=== PATIENT | male | born 1940 | race Caucasian/White ===

== ENCOUNTER → 2021-09-15 00:38 | Outpatient (CLI) | payer MEDICARE, SELFPAY ==
[2021-09-16 18:23] LABS: SARS-CoV-2 RNA PCR Negative
== END ==
PROVIDERS: PCP Internal Medicine; Visit Provider Internal Medicine
DX: R68.89 Other general symptoms and signs (principal); Z20.822 Contact with and (suspected) exposure to COVID-19
CPT/HCPCS: C9803; U0003; U0005

== ENCOUNTER 2021-09-17 06:48 | Outpatient (CLI) | payer MEDICARE, SELFPAY ==
[2021-09-17 08:33] LABS: SARS-CoV-2 RNA PCR Negative (Negative)
== END 2021-09-17 06:49 | disposition home or self-care (01) ==
LOC: CHSLAB 06:51
PROVIDERS: PCP Internal Medicine; Visit Provider Internal Medicine
DX: Z78.9 Other specified health status (principal); Z20.822 Contact with and (suspected) exposure to COVID-19
CPT/HCPCS: C9803; U0003; U0005

== ENCOUNTER → 2022-02-09 10:02 | Outpatient (CLI) | payer MEDICARE, SELFPAY ==
--- NOTE | ~2022-02-09 | XR_ITS ---
EXAMINATION: XR knee RT min 4V EXAM DATE: 02/09/2022 10:23 INDICATION: M25.561 - Pain in right knee. TECHNIQUE: Right knee lateral, frontal AP, frontal PA tunnel, sunrise projections. There is no prior study for comparison. FINDINGS: No evidence osteochondral defect or joint body in the right knee joint. There are no acut e fractures or dislocations identified. There is no subcutaneous gas. There are arterial calcificat ions, arteriosclerosis. There are no radiopaque foreign bodies. Right patella has moderate right l ateral subluxation and mild primary osteoarthritis at the patellofemoral compartment. No sizable join t effusion. IMPRESSION: Right patellar lateral subluxation and mild patellofemoral osteoarthritis. Reviewed, dictated and finalized at location G. IMPRESSION: Right patellar lateral subluxation and mild patellofemoral osteoart hritis.
== END ==
PROVIDERS: PCP Family Medicine; Visit Provider Family Medicine
DX: M17.11 Unilateral primary osteoarthritis, right knee (principal)
CPT/HCPCS: 73564

== ENCOUNTER 2023-01-30 08:12 | Outpatient (CLI) | payer MEDICARE, SELFPAY ==
[2023-01-30 20:26] LABS: Alanine Aminotransferase 33 U/L (6-50); Albumin Level 4.6 g/dL (3.5-5.1); Alkaline Phosphatase 53 U/L (38-126); Anion Gap 5 mmol/L (8-16); Aspartate Amino Transferase 55 U/L (17-59); Bilirubin,Total 0.7 mg/dL (0.2-1.3); Blood Urea Nitrogen 21 mg/dL (9-20); Calcium 9.5 mg/dL (8.4-10.2); Carbon Dioxide 31 mmol/L (22-30); Chloride 101 mmol/L (98-107); Cholesterol 133 mg/dL (0-200); Estimated Glomerular Filt Rate > 60; Glucose 87 mg/dL (65-110); HDL Direct 36 mg/dL; Potassium 4.7 mmol/L (3.4-5.0); Sodium 137 mmol/L (137-145); Triglycerides 88 mg/dL (<150)
[2023-01-30 20:37] LABS: LDL Cholesterol Direct 64 mg/dL
[2023-01-30 22:16] LABS: Prostate Specific Antigen 0.4 ng/mL (< OR = 4.0)
== END 2023-01-30 08:13 | disposition home or self-care (01) ==
LOC: ANHGOSHLAB 08:14
PROVIDERS: PCP Family Medicine; Visit Provider Family Medicine
DX: Z12.5 Encounter for screening for malignant neoplasm of prostate (principal); E78.5 Hyperlipidemia, unspecified; I10 Essential (primary) hypertension
CPT/HCPCS: 36415; 80053; 80061; 84153; G0103

== ENCOUNTER → 2023-02-07 16:15 | Outpatient (CLI) | payer MEDICARE, SELFPAY ==
--- NOTE | ~2023-02-07 | XR_ITS ---
Lumbosacral Spine: AP, oblique, and lateral views Clinical History: Pain Findings: The normal lordotic curve is maintained. No fracture identified. Minimal grade 1 anterolist hesis of L4 over L5 noted. There is moderate degenerative disc narrowing throughout the lumbar spine. There is facet arthropathy, worst at L4-L5 and L5-S1. The sacroiliac joints are normally outlined. Impression: Moderate degenerative spondylosis, as above. Minimal grade 1 anterolisthesis of L4 over L5. Reviewed, dictated and finalized at location M. Impression: Moderate degenerative spondylosis, as above. Minimal grade 1 anterolisthesis of L4 over L5.
--- NOTE | ~2023-02-07 | XR_ITS ---
AP and oblique views of the SI joints CLINICAL HISTORY: Back pain FINDINGS: SI joints are unremarkable. No sclerosis or erosive change. No degenerative change. Soft ti ssues are unremarkable. Hip joints appear intact. IMPRESSION: Unremarkable exam. Reviewed, dictated and finalized at location M. IMPRESSION: Unremarkable exam.
== END ==
PROVIDERS: PCP Family Medicine; Visit Provider Family Medicine
DX: M47.896 Other spondylosis, lumbar region (principal)
CPT/HCPCS: 72110; 72202

== ENCOUNTER 2023-07-16 08:00 | Outpatient (CLI) | payer MEDICARE, SELFPAY ==
--- NOTE | 2023-07-16 11:00 | NEURO_ITS ---
Impression: # Complains of numbness of right thumb. # Right Carpal Tunnel Syndrome. # No ulnar neuropathy. # Normal needle/EMG. Nerve Conduction Studies Anti Sensory Summary Table Stim Site NR Peak (ms) P-T Amp (?V) Site1 Site2 Delta-P (ms) Dist (cm) Easton (m/s) Left Median Anti Sensory (2-3nd Digit) Wrist 3.9 24.0 Wrist 2-3nd Digit 3.9 14.0 36 Wrist 4.1 38.6 Wrist 2-3nd Digit 3.9 14.0 36 Right Median Anti Sensory (2-3nd Digit) Wrist 4.6 36.2 Wrist 2-3nd Digit 4.6 14.0 30 Wrist 4.8 9.1 Wrist 2-3nd Digit 4.6 14.0 30 Left Radial Anti Sensory (Base 1st Digit) Wrist 2.3 9.4 Wrist Base 1st Digit 2.3 0.0 Right Radial Anti Sensory (Base 1st Digit) Wrist 2.3 7.9 Wrist Base 1st Digit 2.3 0.0 Left Ulnar Anti Sensory (5th Digit) Wrist 2.8 44.1 Wrist 5th Digit 2.8 14.0 50 Right Ulnar Anti Sensory (5th Digit) Wrist 2.7 50.9 Wrist 5th Digit 2.7 14.0 52 Motor Summary Table Stim Site NR Onset (ms) O-P Amp (mV) Site1 Site2 Delta-0 (ms) Dist (cm) Easton (m/s) Left Median Motor (Abd Poll Brev) Wrist 3.9 3.7 Elbow Wrist 5.5 29.0 53 Elbow 9.4 3.0 Right Median Motor (Abd Poll Brev) Wrist 4.7 6.3 Elbow Wrist 6.2 31.0 50 Elbow 10.9 5.5 Left Ulnar Motor (Abd Dig Minimi) Wrist 2.8 7.6 A Elbow Wrist 5.7 30.0 53 A Elbow 8.5 5.7 Right Ulnar Motor (Abd Dig Minimi) Wrist 2.8 7.0 A Elbow Wrist 5.8 30.0 52 A Elbow 8.6 4.7 F Wave Studies NR F-Lat (ms) L-R F-Lat (ms) Left Median (Mrkrs) (Abd Poll Brev) 30.31 1.24 Right Median (Mrkrs) (Abd Poll Brev) 31.54 1.24 Left Ulnar (Mrkrs) (Abd Dig Min) 30.86 0.23 Right Ulnar (Mrkrs) (Abd Dig Min) 31.10 0.23 EMG Side Muscle Nerve Root Ins Act Fibs Amp Dur Recrt Comment Right 1stDorInt Ulnar C8-T1 Nml Nml Nml Nml Nml Right Ext Indicis Radial (Post Int) C7-8 Nml Nml Nml Nml Nml Right Ext Digitorum Radial (Post Int) C7-8 Nml Nml Nml Nml Nml Right BrachioRad Radial C5-6 Nml Nml Nml Nml Nml Right PronatorTeres Median C6-7 Nml Nml Nml Nml Nml Right Abd Poll Brev Median C8-T1 Nml Nml Nml Nml Nml Left 1stDorInt Ulnar C8-T1 Nml Nml Nml Nml Nml Left Ext Indicis Radial (Post Int) C7-8 Nml Nml Nml Nml Nml Left Ext Digitorum Radial (Post Int) C7-8 Nml Nml Nml Nml Nml Left BrachioRad Radial C5-6 Nml Nml Nml Nml Nml Left PronatorTeres Median C6-7 Nml Nml Nml Nml Nml Left Abd Poll Brev Median C8-T1 Nml Nml Nml Nml Nml MTDD
== END 2023-07-16 08:01 | disposition home or self-care (01) ==
PROVIDERS: PCP Family Medicine; Visit Provider Family Medicine
DX: R20.2 Paresthesia of skin (principal); G56.01 Carpal tunnel syndrome, right upper limb
CPT/HCPCS: 95886; 95911

== ENCOUNTER 2024-01-31 08:37 | Outpatient (CLI) | payer MEDICARE, SELFPAY ==
[2024-01-31 14:40] LABS: Alanine Aminotransferase 37 U/L (6-50); Albumin Level 4.5 g/dL (3.5-5.1); Alkaline Phosphatase 53 U/L (38-126); Anion Gap 7 mmol/L (8-16); Aspartate Amino Transferase 47 U/L (17-59); Bilirubin,Total 1.1 mg/dL (0.2-1.3); Blood Urea Nitrogen 23 mg/dL (9-20); Calcium 9.3 mg/dL (8.4-10.2); Carbon Dioxide 28 mmol/L (22-30); Chloride 105 mmol/L (98-107); Cholesterol 126 mg/dL (0-200); Estimated Glomerular Filt Rate > 60; Glucose 121 mg/dL (65-110); HDL Direct 32 mg/dL; Potassium 4.1 mmol/L (3.4-5.0); Sodium 140 mmol/L (137-145); Triglycerides 118 mg/dL (<150)
[2024-01-31 14:52] LABS: LDL Cholesterol Direct 74 mg/dL
[2024-01-31 15:08] LABS: Prostate Specific Antigen 0.5 ng/mL (< OR = 4.0)
== END 2024-01-31 08:38 | disposition home or self-care (01) ==
PROVIDERS: PCP Family Medicine; Visit Provider Family Medicine
DX: E78.5 Hyperlipidemia, unspecified (principal); Z13.228 Encounter for screening for other metabolic disorders; Z12.5 Encounter for screening for malignant neoplasm of prostate
CPT/HCPCS: 36415; 80053; 80061; 84153; G0103

== ENCOUNTER 2024-02-05 18:17 | Emergency (ER) | payer OTHER, MEDICARE, SELFPAY ==
--- NOTE | ~2024-02-05 | CT_ITS ---
EXAMINATION: CT cervical spine wo con DATE: 02/05/2024 19:47 INDICATION: Head injury TECHNIQUE: Computed tomography (CT) of the cervical spine was performed without intravenous contrast. The dose-length product (DLP) was 592.19 mGy-cm. Automated exposure control and iterative reconstruc tion technique were employed. COMPARISON: None FINDINGS: There are 2 mm of anterolisthesis of C2 on C3 and 2 mm of retrolisthesis of C5 on C6. There is no fracture. There is severe loss of intervertebral disc space height from C4-5 through C6-7. The re is moderate loss of intervertebral disc space height at C3-4. The odontoid process is intact. The vertebral body heights are maintained. There is multilevel severe facet and uncovertebral joint osteo arthritis. IMPRESSION: 1. Severe cervical spondylosis without acute findings. Reviewed, dictated and finalized at location F.
--- NOTE | ~2024-02-05 | CT_ITS ---
EXAMINATION: CT brain wo con INDICATION: Headache COMPARISON: None TECHNIQUE: Standard unenhanced head CT. The dose-length product (DLP) was 756.67 mGy-cm. The mA was a djusted according to patient size. Iterative reconstruction technique was employed. FINDINGS: No acute intraparenchymal hemorrhage. No evidence of mass lesion. No evidence of acute infa rction. There is mild periventricular and subcortical hypodensity probably related to small vessel is chemic disease. There is mild prominence of the sulci and ventricles related to cerebral atrophy. Int racranial calcified cerebral atherosclerosis is noted. No extra-axial collections. No mass effect or midline shift. Changes in the globes are likely from ocular lens surgery. There is mild mucosal thick ening of the paranasal sinuses. IMPRESSION: 1. No acute intracranial abnormality. 2. Age related findings. Reviewed, dictated and finalized at location F.
--- NOTE | ~2024-02-05 | XR_ITS ---
EXAMINATION: XR hand RT min 3V INDICATION: Right hand pain TECHNIQUE: Three views of the right hand are obtained. COMPARISON: 08/15/2009 FINDINGS: Bone alignment is normal. There is no fracture. Calcified atherosclerosis is noted. There i s mild osteoarthritis at the triscaphe and first carpometacarpal joints. No definite radiopaque forei gn body is identified. IMPRESSION: 1. No acute osseous abnormality a radiopaque foreign body identified. Reviewed, dictated and finalized at location F.
--- NOTE | ~2024-02-05 | XR_ITS ---
EXAMINATION: XR hip RT min 2V DATE: 02/05/2024 19:04 INDICATION: Right hip pain TECHNIQUE: Two views of right hip were obtained. COMPARISON: 02/07/2023 FINDINGS: Bone alignment is normal. There is no fracture. There is an unchanged, subtle lucent lesion in the proximal femoral shaft without aggressive features, consistent with a benign finding. Calcifi ed atherosclerosis is noted. IMPRESSION: 1. No acute osseous abnormality. Reviewed, dictated and finalized at location F.
[2024-02-05 18:19] VITALS: BP 145/65; PULSE 87; RESP 16; TEMP 36.4; O2SAT 96
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
[2024-02-05] MEDS: ACETAMINOPHEN 500 MG TABLET 1000 MG PO (19:49)
--- NOTE | 2024-02-05 21:10 | PC.NURSE ---
cleaned pts wounds. 4 wounds on R hand and 2 wounds to R forehead. All wounds were cleaned with saline irrigation, dried, applied Bacitracin ointment and covered with band aids.
[2024-02-05 21:12] VITALS: BP 141/78; PULSE 89; RESP 20; TEMP 36.7; O2SAT 96
== END 2024-02-05 21:13 | disposition home or self-care (01) ==
PROVIDERS: Emergency Provider Physician Assistant; PCP Family Medicine
DX: S39.92XA Unspecified injury of lower back, initial encounter (principal); S00.81XA Abrasion of other part of head, initial encounter; S60.511A Abrasion of right hand, initial encounter; I10 Essential (primary) hypertension; K21.9 Gastro-esophageal reflux disease without esophagitis; Z85.828 Personal history of other malignant neoplasm of skin; M47.812 Spondylosis without myelopathy or radiculopathy, cervical region; V49.40XA Driver injured in collision with unspecified motor vehicles in traffic accident, initial encounter
CPT/HCPCS: 70450; 72125; 73130; 73502; 99284; A9270

== ENCOUNTER 2024-02-10 09:21 | Outpatient (CLI) | payer MEDICARE, SELFPAY ==
[2024-02-10 22:28] LABS: Hemoglobin A1C 6.3 % (<5.7)
== END 2024-02-10 09:22 | disposition home or self-care (01) ==
PROVIDERS: PCP Family Medicine; Visit Provider Family Medicine
DX: R73.01 Impaired fasting glucose (principal)
CPT/HCPCS: 36415; 83036

== ENCOUNTER 2025-01-26 10:54 | Outpatient (CLI) | payer MEDICARE, SELFPAY ==
--- NOTE | 2025-01-26 11:10 | ECG_ITS ---
Test Date: 2025-01-26 11:22:04 Measurements Intervals [place] Rate: 57 P: 44 WV: 188 QRS: 52 QRSD: 86 T: 30 QT: 412 QTc: 403 Interpretive Statements SINUS BRADYCARDIA No previous ECG available for comparison Electronically Signed On 01-26-2025 15:02:46 CDT by Maira Rodriguez M.D.
--- OUTSIDE RECORDS SUMMARY | 2025-01-26 12:36 | XMS_ITS | Encounter Summary ---
Author Organization [facility] Address [address] [place] [address] Care Team Providers Care Straight Cutter Machine Name Role Phone Kade Nieves MD Primary Care Provider [phone] Encounter Details Date Type Department Care Team (Late st Contact Info) Description 07/16/2023 Lab Requisition [facility] - DermPath Lab [address] [facility] [place] [address] Louisa Castro DO [address] [facility] [address] DEPT [place] [address] Social History Tobacco Use Types Packs/Day Years Used Date Smoking Tobacco: Never Assessed Sex and Gender Information Value Date Recorded Sex Assigned at Not on file Gender Identity Not on file Sexual Orientation Not on file documented as of this encounter Plan of Treatment Not on file documented as of this encounter Procedures Procedure Name Priority Date/Time Associated Diagnosis Comments DERMATOPATHOLOGY Routine 07/16/2023 10:3 8 AM CDT documented in this encounter Results * DERMATOPATHOLOGY (07/16/2023 10:38 AM CDT) Case Report Dermatopathology Report Case: [id number] Authorizing Provider: Louisa Castro DO Collected: 07/16/2023 10:38 AM Ordering Location: [facility] Received: 07/17/2023 07:48 AM Pathologist: Richi Araiza MD Specimen: Skin, left lateral back 3 4:18 PM CDT DERMATOPATHOLOGY LABORATORY Final Diagnosis Specimen A. SKIN, left lateral back: HYPERPLASTIC (HYPERTROPHIC) ACTINIC KERATOSIS (L57.0) BENIGN VERRUCOUS KERATOSIS (L82.1) (see microscopic description) 3 4:18 PM CDT DERMATOPATHOLOGY LABORATORY Clinical History ISK R/O NMSC; NONHEALING IRRITATED 3 4:18 PM T DERMATOPATHOLOGY LABORATORY Gross Description Specimen A: Received is one formalin filled container labeled with the patient's name and designated left lateral back. The specimen consists of a shave biopsy measuring 12x8x1 and 4x2x1 mm. Jar 0. 3 4:18 PM [facility] DERMATOPATHOLOGY LABORATORY Microscopic Description Specimen A. SKIN, left lateral back: There is hyperkeratosis alternating with parakeratosis. There is epidermal hyperplasia with disorderly maturation of keratinocytes with nuclear pleomorphism confined to the lower half of the epidermis. Sections also show adjacent hyperkeratosis, papillomatosis, hypergranulosis, and acanthosis. These histological findings can be seen in a verruca vulgaris or a seborrheic keratosis. 3 4:18 PM [facility] DERMATOPATHOLOGY LABORATORY Disclaimer An external and internal positive and negative controls are appropriate for the histochemical, immunohistochemical and immunofluorescence stain(s) in this case (if any), except where stated explicitly. The performance characteristics of the stain(s) cited in this report were developed and its performance characteristic determined by the Dermatopathology Laboratory at [facility], directed by Dr. Fortino Araiza. These tests need not be, and therefore are not, approved by the [place] Food and Drug Administration. The tests are used for clinical purposes. Billing Codes Specimen Charges Stain Charges 63593 1 3 4:18 PM CDT DERMATOPATHOLOGY LABORATORY Embedded Images 3 4:18 PM CDT DERMATOPATHOLOGY LABORATORY Pathology/Cytolo gy TISSUE SPECIMEN FROM SKIN / Unknown 07/16/2023 10:38 AM CDT 07/17/2023 7:48 AM CDT Louisa Castro DO LAB - PATHOLOGY/C YTOLOGY ORDERABLES DERMATOPATHOLOGY LABORATORY [facility] - Department of Dermatology [address], [address] [phone] documented in this encounter Visit Diagnoses Not on filedocumented in this encounter Care Teams Straight Cutter Machine Relationship Specialty Start Date End Date Kade Nieves MD PCP - General 12/19/18 documented as of this encounter
--- OUTSIDE RECORDS SUMMARY | 2025-01-26 12:36 | XMS_ITS | Referral Summary ---
Author Organization [facility] Address [address] [place] [address] Care Team Providers Care Jv Baseball Coach Name Role Phone Jose AZana harrison Primary Care Provider [phone] Encounters Date Type Department Care Team Description 12/21/2024 3:30 PM CHECK WRITER Office Visit [facility] Cardiology [address] [place] [address] Michael Basurto MD Coronary arteriosclerosis in [place] artery (Primary Dx) from Last 3 Months Allergies No known active allergies Medications aspirin 81 mg enteric coated tablet daily Active amLODIPine (NORVASC) 10 mg tablet Take 1 tablet (10 mg total) by mouth daily 3 9 Active azelastine 0.15 % (205.5 mcg) spray,non-aeros ol Active finasteride (PROSCAR) 5 mg tablet Take 1 tablet (5 mg total) by mouth daily 3 9 Active metoprolol (LOPRESSOR) 25 mg tablet Take 1 tablet (25 mg total) by mouth 2 (two) times a day 3 9 Active pravastatin (PRAVACHOL) 40 mg tablet TAKE 1 TABLET BY MOUTH ONCE DAILY 3 9 Active ramipril (ALTACE) 10 mg capsule Take 2 capsules (20 mg total) by mouth daily 3 9 Active tamsulosin (FLOMAX) 0.4 mg extended release capsule Take 1 capsule (0.4 mg total) by mouth daily 3 9 Active multivitamin capsule Take 1 capsule by mouth daily Active methylPREDNISol one (MEDROL DOSEPACK) 4 mg Dosepack Use as directed by package instructions 21 tablet 3 Active Active Problems Problem Noted Date Diagnosed Date Essential hypertension 02/25/2019 Dyslipidemia 02/25/2019 Vocal cord atrophy 03/19/2017 Dysphonia 03/19/2017 Laryngeal spasm 03/19/2017 Dyspnea on exertion 09/05/2016 Muscle soreness 06/13/2015 Palpitations 12/13/2014 Coronary arteriosclerosis in [place] artery 09/30 Hemospermia 03/17/2010 Immunizations Immunization Administration Dates Next Due Hep A, Adult 08/13/2008,02/10/2008 Hep B Vaccine 08/13/2008,03/24/2008,02/10/2008 Influenza, Quad, Adjuvantate d, Intramuscular 07/19/2020 Influenza, Quadrivalent, Spl it, Preservative Free, Intramuscular 07/24/2013 Influenza, Trivalent, High D ose, Split, Preservative Free, Intramuscular 07/27/2019,07/23/2018,07/22/2018,08/17,08/28/2016,2015 Influenza, Trivalent, IM (MDV) 07/21/2014 Moderna SARS-CoV-2 Monovalen t Vaccination (12+ YRS) 02/06/2021,01/05/2021 Pneumococcal Conjugate PCV 13 02/06/2015 Social History Tobacco Use Types Packs/Day Years Used Date Smoking Tobacco: Never Smokeless Tobacco: Never Tobacco Cessation:Counseling Given: Not Answered AUDIT-C Answer Date Recorded Q1: How often do you have a drink containing alcohol? Never 08/27/2023 Q2: How many drinks containi ng alcohol do you have on a typical day when you are drinking? Patient does not drink Q3: How often do you have si x or more drinks on one occasion? Never 08/27/2023 Sex and Gender Information Value Date Recorded Sex Assigned at Not on file Legal Sex Male 2:59 AM CHECK WRITER Gender Identity Not on file Sexual Orientation Not on file Occupation Industry Job Start Date Job End Date Retired Not on file Not on file Not on file Last Filed Vital Signs Vital Sign Reading Time Taken Comments Blood Pressure 122/58 12/21/2024 2:46 PM CHECK WRITER Pulse 68 12/21/2024 2:46 PM CHECK WRITER Temperature 36.3 C (97.3 F) 09/16/2020 2:40 PM CDT Respiratory Rate 20 09/16/2020 2:55 PM CDT Oxygen Saturation 96% 12/21/2024 2:46 PM CHECK WRITER Inhaled Oxygen Concentration - - Weight 84.3 kg (185 lb 14.4 oz) 12/21/2024 2:46 PM CHECK WRITER Height 172.7 cm (5' 8 ) 12/21/2024 2:46 PM CHECK WRITER Body Mass Index 28.27 12/21/2024 2:46 PM CHECK WRITER Plan of Treatment Not on file Insurance [facility] Address: [id number] [place] [address] [facility] Address: [address] [address] [place] [address] [employer] Advance Directives For more information, please contact: [phone] * Full Code (Latest Code Status on File) Date Activated Date Inactivated Comments 09/16/2020 12:36 PM 09/16/2020 7:43 PM Care Teams Jv Baseball Coach Relationship Specialty Start Date End Date Zana Garcia DO PCP - General Family Medicine 06/26/22
--- OUTSIDE RECORDS SUMMARY | 2025-01-26 12:36 | XMS_ITS | Clinical Summary ---
Author Organization [facility] Address [address] [place] [address] Care Team Providers Care Log Carrier Operator Name Role Phone Jose Zana DARDEN Primary Care Provider [phone] Allergies No known active allergies Medications aspirin [...] soreness 06/13/2015 Palpitations 12/13/2014 Coronary arteriosclerosis in [place] artery 09/30 Hemospermia 03/17/2010 Encounters Date Type Department Care Team Description 12/21/2024 3:30 PM CLIP LOADING MACHINE ADJUSTER Office Visit [facility] Cardiology [address] [place] [address] Michael Basurto MD Coronary arteriosclerosis in [place] artery (Primary Dx) from Last 3 Months Immunizations Immunization Administration Dates Next Due Hep A, Adult 08/13/2008,02/10/2008 Hep B Vaccine 08/13/2008,03/24/2008,02/10/2008 Influenza, Quad, Adjuvantate d, Intramuscular 07/19/2020 Influenza, Quadrivalent, Spl it, Preservative Free, Intramuscular 07/24/2013 Influenza, Trivalent, High D ose, Split, Preservative Free, Intramuscular 07/27/2019,07/23/2018,07/22/2018,08/17,08/28/2016,2015 Influenza, Trivalent, IM (MDV) 07/21/2014 Moderna SARS-CoV-2 Monovalen t Vaccination (12+ YRS) 02/06/2021,01/05/2021 Pneumococcal Conjugate PCV 13 02/06/2015 Surgical History Surgery Date Site/Laterality Comments TONSILLECTOMY 11/18/1943 - 11/17/1944 CORONARY ANGIOPLASTY 11/18/1997 - 11/17/1998 CATARACT EXTRACTION EXTRACAP SULAR W/ INTRAOCULAR LENS IMPLANTATION Bilateral CATARACT EXTRACTION 1990 & 2004 Medical History Medical History Date Comments HTN (hypertension) Dyslipidemia CAD (coronary artery disease) Hx of adenomatous colonic polyps GERD (gastroesophageal reflux disease) BPH (benign prostatic hyperplasia) Benign prostatic hyperplasia 1968 Cataract 1993 Family History Medical History Relation Name Comments Diabetes Brother Biju Freitas Heart disease Father Paulie Maloney. Early Paternal Grandfather Paulie AguilarOliver Relation Name Status Comments Brother Biju Stoddard. Father Paulie Maloney. Mother Paternal Grandfather Paulie J. Social History Tobacco Use Types Packs/Day Years [...] on file Legal Sex Male 2:59 AM CLIP LOADING MACHINE ADJUSTER Gender Identity Not on file Sexual Orientation Not on file Occupation Industry Job Start Date Job End Date Retired Not on file Not on file Not on file Obstetrics History Last Filed Vital Signs Vital Sign Reading Time Taken Comments Blood Pressure 122/58 12/21/2024 2:46 PM CLIP LOADING MACHINE ADJUSTER Pulse 68 12/21/2024 2:46 PM CLIP LOADING MACHINE ADJUSTER Temperature 36.3 C (97.3 F) 09/16/2020 2:40 PM CDT Respiratory Rate 20 09/16/2020 2:55 PM CDT Oxygen Saturation 96% 12/21/2024 2:46 PM CLIP LOADING MACHINE ADJUSTER Inhaled Oxygen Concentration - - Weight 84.3 kg (185 lb 14.4 oz) 12/21/2024 2:46 PM CLIP LOADING MACHINE ADJUSTER Height 172.7 cm (5' 8 ) 12/21/2024 2:46 PM CLIP LOADING MACHINE ADJUSTER Body Mass Index 28.27 12/21/2024 2:46 PM CLIP LOADING MACHINE ADJUSTER Plan of Treatment Health Maintenance Due Date Last Done Comments Depression Screening 1938 Fall Risk Assessment 1938 DTaP/Tdap/Td Vaccine (1 - Tdap) 1949 Zoster Vaccine (1 of 2) 1988 Well Visit 65+ 2003 Pneumococcal vaccine 65+ (2 of 2 - PPSV23) 02/07/2016 02/06/2015 Covid-19 Vaccine (2023-2 5 season) 2024 10/20/2021, 02/06/2021, 01/05/2021 Influenza Vaccine (#1) 2024 0, 07/27/2019, 07/23/2018, Additional history exists Hepatitis B Screening Completed 08/13/2008 , 03/24/2008, 02/10/2008 Insurance [employer] [place] [id number] [employer] [place] [id number] Advance Directives For more information, please contact: [phone] * Full Code (Latest Code Status on File) Date Activated Date Inactivated Comments 09/16/2020 12:36 PM 09/16/2020 7:43 PM Care Teams Log Carrier Operator Relationship Specialty Start Date End Date Zana Garcia DO PCP - General Family Medicine 06/26/22
--- OUTSIDE RECORDS SUMMARY | 2025-01-26 12:36 | XMS_ITS | Encounter Summary ---
Author Organization [facility] Address [address] [facility] [place] [address] Care Team Providers Care Child Care Name Role Phone Kade Nieves MD Primary Care Provider [phone] Encounter Details Date Type Department Care Team (Late st Contact Info) Description 12/22/2018 Lab Requisition [facility] Care DermPath Lab [address] [facility], [facility] [place] [phone] Ermelinda Ashton MD [address] [facility] 3 [place] [address] Social History Tobacco Use Types Packs/Day Years Used Date Smoking Tobacco: Never Assessed Sex and Gender Information Value Date Recorded Sex Assigned at Not on file Gender Identity Not on file Sexual Orientation Not on file documented as of this encounter Plan of Treatment Not on file documented as of this encounter Procedures Procedure Name Priority Date/Time Associated Diagnosis Comments DERMATOPATHOLOGY Routine 12/19/2018 12:0 0 AM BURN TABLE OPERATOR documented in this encounter Results * DERMATOPATHOLOGY (12/19/2018 12:00 AM BURN TABLE OPERATOR) Case Report Dermatopathology Report Case: [id number] Authorizing Provider: Ermelinda Ashton MD Collected: 12/19/2018 12:00 AM Pathologist: Janey Morgan MD Received: 12/22/2018 09:54 AM Specimen: Skin, left nasal tip 9 1:16 PM BURN TABLE OPERATOR DERMATOPATHOLOGY LABORATORY Final Diagnosis Specimen A. SKIN, left nasal tip: ACTINIC KERATOSIS (L57.0) (see microscopic description) 9 1:16 PM BURN TABLE OPERATOR DERMATOPATHOLOGY LABORATORY Clinical History BCC. Non-healing. 9 1:16 PM BURN TABLE OPERATOR DERMATOPATHOLOGY LABORATORY Gross Description Specimen A: Received is one formalin filled container labeled with the patient's name and designated left nasal tip. The specimen consists of a shave biopsy measuring [id number]. Jar 0. 1:16 PM [facility] DERMATOPATHOLOGY LABORATORY Microscopic Description Specimen A. SKIN, left nasal tip: There is focal parakeratosis. The lower half of the epidermis shows disorderly maturation of keratinocytes with nuclear pleomorphism. Additional deeper sections were obtained and reviewed. There is minimal dermis present for evaluation. 1:16 PM [facility] DERMATOPATHOLOGY LABORATORY Disclaimer An external and internal positive and negative controls are appropriate for the histochemical, immunohistochemical and immunofluorescence stain(s) in this case (if any), except where stated explicitly. The performance characteristics of the stain(s) cited in this report were developed and its performance characteristic determined by the Dermatopathology Laboratory at [facility], directed by Dr. Fortino Araiza. These tests need not be, and therefore are not, approved by the [place] Food and Drug Administration. The tests are used for clinical purposes. Billing Codes Specimen Charges Stain Charges 70843 1 1:16 PM [facility] DERMATOPATHOLOGY LABORATORY Embedded Images 1:16 PM [facility] DERMATOPATHOLOGY LABORATORY Pathology/Cytolog y TISSUE SPECIMEN FROM SKIN / Unknown 12/19/2018 12/22/2018 9:54 AM BURN TABLE OPERATOR Ermelinda Ashton MD LAB - PATHOLOGY/CYT OLOGY ORDERABLES DERMATOPATHOLOGY LABORATORY [facility] - Department of Dermatology [address] [place] [address], 5th Floor Lab [address] [phone] documented in this encounter Visit Diagnoses Not on filedocumented in this encounter Care Teams Child Care Relationship Specialty Start Date End Date Kade Nieves MD PCP - General 12/19/18 documented as of this encounter
--- OUTSIDE RECORDS SUMMARY | 2025-01-26 12:37 | XMS_ITS | Clinical Summary ---
Author Organization [facility] Address [address] [place] [address] Care Team Providers Care High School Football Coach Name Role Phone Kade Nieves MD Primary Care Provider [phone] Source Comments [facility],non-owned Affiliates and Associated Physician Practices is amultiple site organization consisting of ambulatory clinics and hospital sitesin [place], [place], [place] and [place]. This disclosure is being madepursuant to the Care Everywhere program and may not contain all information available regarding this patient. Last updated 18.[facility] Social History Tobacco Use Types Packs/Day Years Used Date Smoking Tobacco: Never Assessed Sex and Gender Information Value Date Recorded Sex Assigned at Not on file Gender Identity Not on file Sexual Orientation Not on file Plan of Treatment Health Maintenance Due Date Last Done Comments DTAP/TDAP/TD VACCINES (1 - Tdap) 1959 PNEUMOCOCCAL VACCINE 50+ (1 of 1 - PCV) 1988 ZOSTER VACCINE (1 of 2) 1988 Respiratory Syncytial Virus (RSV) Vaccine Pt: or over 60 yrs (1 - 1-dose 75+ series) 2013 COVID-19 VACCINE ( - 2023-2 5 season) 2024 INFLUENZA VACCINE (#1) 2024 DEPRESSION SCREENING 11/18/2024 MEDICARE AWV CALENDAR YEAR 2024 HEPATITIS B VACCINE Aged Out No longe r eligible based on patient's age to complete this topic HIB VACCINE Aged Out No longer eligi ble based on patient's age to complete this topic HPV VACCINE Aged Out No longer eligi ble based on patient's age to complete this topic MENINGOCOCCAL (Group B) VACCINE Aged Out No longer eligible based on patient's age to complete this topic MENINGOCOCCAL VACCINE Aged Out No lisa beverly eligible based on patient's age to complete this topic Care Teams High School Football Coach Relationship Specialty Start Date End Date Kade Nieves MD PCP - General 12/19/18
--- OUTSIDE RECORDS SUMMARY | 2025-01-26 12:37 | XMS_ITS | Patient Health Summary ---
Author Organization [facility] Address [address] [facility] [place] [address] Care Team Providers Care Face Cleaner Name Role Phone Kade Nieves MD Primary Care Provider [phone] Note [address] [facility],non-owned Affiliates and Associated Physician Practices is amultiple site organization consisting of ambulatory clinics and hospital sitesin [place], [place], [place] and [place]. This disclosure is being madepursuant to the Care Everywhere program and may not contain all information available regarding this patient. Last updated 18.[facility] Social History Tobacco Use Types Packs/Day Years Used Date Smoking Tobacco: Never Assessed Sex and Gender Information Value Date Recorded Sex Assigned at Not on file Gender Identity Not on file Sexual Orientation Not on file Procedures * DERMATOPATHOLOGY(Performed 07/16/2023) * DERMATOPATHOLOGY(Performed 12/19/2018) * DERMATOPATHOLOGY(Performed 06/04/2017) * DERMATOPATHOLOGY(Performed 02/20/2016) Results * DERMATOPATHOLOGY (07/16/2023 10:38 AM CDT) Only the most recent of4 resultswithin the time period is included. Case Report Dermatopathology Report Case: [id number] Authorizing Provider: Louisa Castro DO Collected: 07/16/2023 10:38 AM Ordering Location: [facility] DermPath Lab Received: 07/17/2023 07:48 AM Pathologist: Richi Araiza MD Specimen: Skin, left lateral back 3 4:18 PM CDT DERMATOPATHOLOGY LABORATORY Final Diagnosis Specimen A. SKIN, left lateral back: HYPERPLASTIC (HYPERTROPHIC) ACTINIC KERATOSIS (L57.0) BENIGN VERRUCOUS KERATOSIS (L82.1) (see microscopic description) 3 4:18 PM CDT DERMATOPATHOLOGY LABORATORY Clinical History ISK R/O NMSC; NONHEALING IRRITATED 3 4:18 PM CDT DERMATOPATHOLOGY LABORATORY Gross Description Specimen A: Received is one formalin filled container labeled with the patient's name and designated left lateral back. The specimen consists of a shave biopsy measuring 12x8x1 and 4x2x1 mm. Jar 0. 3 4:18 PM T DERMATOPATHOLOGY LABORATORY Microscopic Description Specimen A. SKIN, left lateral back: There is hyperkeratosis alternating with parakeratosis. There is epidermal hyperplasia with disorderly maturation of keratinocytes with nuclear pleomorphism confined to the lower half of the epidermis. Sections also show adjacent hyperkeratosis, papillomatosis, hypergranulosis, and acanthosis. These histological findings can be seen in a verruca vulgaris or a seborrheic keratosis. 3 4:18 PM T DERMATOPATHOLOGY LABORATORY Disclaimer An external and internal positive and negative controls are appropriate for the histochemical, immunohistochemical and immunofluorescence stain(s) in this case (if any), except where stated explicitly. The performance characteristics of the stain(s) cited in this report were developed and its performance characteristic determined by the Dermatopathology Laboratory at [facility], directed by Dr. Fortino Araiza. These tests need not be, and therefore are not, approved by the [place] Food and Drug Administration. The tests are used for clinical purposes. Billing Codes Specimen Charges Stain Charges 17745 1 3 4:18 PM CDT DERMATOPATHOLOGY LABORATORY Embedded Images 3 4:18 PM CDT DERMATOPATHOLOGY LABORATORY Pathology/Cytolo gy TISSUE SPECIMEN FROM SKIN / Unknown 07/16/2023 10:38 AM CDT 07/17/2023 7:48 AM CDT Louisa Castro DO LAB - PATHOLOGY/C YTOLOGY ORDERABLES DERMATOPATHOLOGY LABORATORY [facility] - Department of Dermatology [address], [address] [phone] Care Teams Face Cleaner Relationship Specialty Start Date End Date Kade Nieves MD PCP - General 12/19/18
--- OUTSIDE RECORDS SUMMARY | 2025-01-26 12:37 | XMS_ITS | Clinical Summary ---
Author Organization [facility] Address [address] [place] [address] Care Team Providers Care Ui Application Developer Name Role Phone Unavailable Primary Care Provider Unavailabl e Immunizations Immunization Administration Dates Next Due Covid-19, Mrna, Lnp-s, PF, 5 0 mcg/0.25 mL dose (Moderna) 10/20/2021 Social History Tobacco Use Types Packs/Day Years Used Date Smoking Tobacco: Never Assessed Sex and Gender Information Value Date Recorded Sex Assigned at Not on file Legal Sex Male 12:13 PM RUG CLEANING SUPERVISOR Gender Identity Not on file Sexual Orientation Not on file Plan of Treatment Health Maintenance Due Date Last Done Comments Hepatitis C Virus (HCV) Screening 1938 TdaP Immunization 1938 Zoster Immunization (1 of 2) 1988 Respiratory Syncytial Virus (RSV) Immunization (Adult) (1 - 1-dose 75+ series) 2013 Pneumococcal Immunization (50+ years) (2 of 2 - PPSV23) 02/07/2016 02/06/2015 SARS-COV-2 Immunization (3 - Moderna risk series) 11/17/2021 10/20/2021, 02/06/2021, 01/05/2021 Influenza Immunization (#1) 2024 10/0 03/2021, 07/19/2020, 07/27/2019, Additional history exists Hepatitis B Immunization Completed 008, 03/24/2008, 02/10/2008 Meningococcal Immunization (ACWY) Aged Out No longer eligible based on patient's age to complete this topic Rotavirus Immunization Aged Out No lo nger eligible based on patient's age to complete this topic
--- OUTSIDE RECORDS SUMMARY | 2025-01-26 12:37 | XMS_ITS | Referral Summary ---
Author Organization [facility] Address [address] [place] [address] Care Team Providers Care Database Programmer Name Role Phone Kade Nieves MD Primary Care Provider [phone] Source Comments [facility],non-owned Affiliates and Associated Physician Practices is amultiple site organization consisting of ambulatory clinics and hospital sitesin [place], [place], [place] and [place]. This disclosure is being madepursuant to the Care Everywhere program and may not contain all information available regarding this patient. Last updated 18.[facility] [employer] Social History Tobacco Use Types Packs/Day Years Used Date Smoking Tobacco: Never Assessed Sex and Gender Information Value Date Recorded Sex Assigned at Not on file Gender Identity Not on file Sexual Orientation Not on file Plan of Treatment Not on file Care Teams Database Programmer Relationship Specialty Start Date End Date Kade Nieves MD PCP - General 12/19/18
== END 2025-01-26 10:55 | disposition home or self-care (01) ==
PROVIDERS: PCP Internal Medicine; Visit Provider Anesthesiology
DX: I10 Essential (primary) hypertension (principal); Z01.818 Encounter for other preprocedural examination
CPT/HCPCS: 93005

== ENCOUNTER 2025-02-01 08:42 | Outpatient (CLI) | payer MEDICARE, SELFPAY ==
--- OUTSIDE RECORDS SUMMARY | 2025-02-01 09:08 | XMS_ITS | Referral Summary ---
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 Hemospermia 03/17/2010 Immunizations Immunization Administration [...] on file Legal Sex Male 2:59 AM FOOD SAMPLER Gender Identity Not on file Sexual Orientation Not on file Occupation Industry Job Start Date Job End Date Retired Not on file Not on file Not on file Last Filed Vital Signs Vital Sign Reading Time Taken Comments Blood Pressure 122/58 12/21/2024 2:46 PM FOOD SAMPLER Pulse 68 12/21/2024 2:46 PM FOOD SAMPLER Temperature 36.3 C (97.3 F) 09/16/2020 2:40 PM CDT Respiratory Rate 20 09/16/2020 2:55 PM CDT Oxygen Saturation 96% 12/21/2024 2:46 PM FOOD SAMPLER Inhaled Oxygen Concentration - - Weight 84.3 kg (185 lb 14.4 oz) 12/21/2024 2:46 PM FOOD SAMPLER Height 172.7 cm (5' 8 ) 12/21/2024 2:46 PM FOOD SAMPLER Body Mass Index 28.27 12/21/2024 2:46 PM FOOD SAMPLER Plan of Treatment Not on file Insurance MEDIC[facility] Address: [id number] [place] [address] MEDICARE [facility] Address: [address] [address] [place] [address] [employer] Advance Directives For more information, please contact: [phone] * Full Code (Latest Code Status on File) Date Activated Date Inactivated Comments 09/16/2020 12:36 PM 09/16/2020 7:43 PM Care Teams Home Service Consultant Relationship Specialty Start Date End Date Zana Garcia DO PCP - General Family Medicine 06/26/22
--- OUTSIDE RECORDS SUMMARY | 2025-02-01 09:08 | XMS_ITS | Clinical Summary ---
Author Organization [facility] Address [address] [place] [address] Care Team Providers Care Articulation Officer Name Role Phone Unavailable Primary Care Provider Unavailabl e Immunizations Immunization Administration Dates Next Due Covid-19, Mrna, Lnp-s, PF, 5 0 mcg/0.25 mL dose (Moderna) 10/20/2021 Social History Tobacco Use Types Packs/Day Years Used Date Smoking Tobacco: Never Assessed Sex and Gender Information Value Date Recorded Sex Assigned at Not on file Legal Sex Male 12:13 PM DIRECTOR OF IT OPERATIONS Gender Identity Not on file Sexual Orientation [...]
--- OUTSIDE RECORDS SUMMARY | 2025-02-01 09:08 | XMS_ITS | Encounter Summary ---
Author Organization [facility] Address [address] [place] [address] Care Team Providers Care Urology Physician Assistant Name Role Phone Kade Nieves MD Primary Care Provider [phone] Encounter Details Date Type Department Care Team (Late st Contact Info) Description 07/16/2023 Lab Requisition [facility] - DermPath Lab [address] [facility], [place] [address] Louisa Castro DO [address] [facility] 3 [place] [address] Social History Tobacco Use Types Packs/Day Years [...] AM CDT) Case Report Dermatopathology Report Case: [id number] Authorizing Provider: Louisa Castro DO Collected: 07/16/2023 10:38 AM Ordering Location: [facility] DermPath Lab Received: 07/17/2023 07:48 AM Pathologist: [...] 4x2x1 mm. Jar 0. 3 4:18 PM [facility] DERMATOPATHOLOGY LABORATORY Microscopic Description Specimen [...] or a seborrheic keratosis. 3 4:18 PM [facility] DERMATOPATHOLOGY LABORATORY Disclaimer An external and internal positive and negative controls are appropriate for the histochemical, immunohistochemical and immunofluorescence stain(s) in this case (if any), except where stated explicitly. The performance characteristics of the stain(s) cited in this report were developed and its performance characteristic determined by the Dermatopathology Laboratory at [facility], directed by Dr. Fortino Araiza. These tests need not be, and therefore are not, approved by the [place] Food and Drug Administration. The tests are used for clinical purposes. Billing Codes Specimen Charges Stain Charges 43422 1 3 4:18 PM CDT DERMATOPATHOLOGY LABORATORY Embedded Images 3 4:18 PM CDT DERMATOPATHOLOGY LABORATORY Pathology/Cytolo gy TISSUE SPECIMEN FROM SKIN / Unknown 07/16/2023 10:38 AM CDT 07/17/2023 7:48 AM CDT Louisa Castro DO LAB - PATHOLOGY/C YTOLOGY ORDERABLES DERMATOPATHOLOGY LABORATORY [facility] - Department of Dermatology [address], [address] [phone] documented in this encounter Visit Diagnoses Not on filedocumented in this encounter Care Teams Urology Physician Assistant Relationship Specialty Start Date End Date Kade Nieves MD PCP - General 12/19/18 documented as of this encounter
--- OUTSIDE RECORDS SUMMARY | 2025-02-01 09:08 | XMS_ITS | Patient Health Summary ---
Author Organization [facility] Address [address] [place] [address] Care Team Providers Care Backend Developer Name Role Phone Kade Nieves MD Primary Care Provider [phone] Note from [facility],non-owned Affiliates and Associated Physician Practices is amultiple site organization consisting of ambulatory clinics and hospital sitesin [place], [place], [place] and [place]. This disclosure is being madepursuant to the Care Everywhere program and may not contain all information available regarding this patient. Last updated 18.[facility] Social History Tobacco Use Types Packs/Day Years [...] is included. Case Report Dermatopathology Report Case: [id number] Authorizing Provider: Louisa Castro DO Collected: 07/16/2023 10:38 AM Ordering Location: [facility] DermPath Lab Received: 07/17/2023 07:48 AM Pathologist: [...] characteristic determined by the Dermatopathology Laboratory at [facility], directed by Dr. Fortino Araiza. These tests need not be, and therefore are not, approved by the [place] Food and Drug Administration. The tests are used for clinical purposes. Billing Codes Specimen Charges Stain Charges 31787 1 3 4:18 PM CDT DERMATOPATHOLOGY LABORATORY Embedded Images 3 4:18 PM CDT DERMATOPATHOLOGY LABORATORY Pathology/Cytolo gy TISSUE SPECIMEN FROM SKIN / Unknown 07/16/2023 10:38 AM CDT 07/17/2023 7:48 AM CDT Louisa Castro DO LAB - PATHOLOGY/C YTOLOGY ORDERABLES DERMATOPATHOLOGY LABORATORY [facility] - Department of Dermatology [address], [address] [phone] Care Teams Backend Developer Relationship Specialty Start Date End Date Kade Nieves MD PCP - General 12/19/18
--- OUTSIDE RECORDS SUMMARY | 2025-02-01 09:08 | XMS_ITS | Clinical Summary ---
Author Organization [facility] Address [address] [place] [address] Care Team Providers Care Stonemason Name Role Phone Kade Nievse MD Primary Care Provider [phone] Source Comments [facility],non-owned Affiliates and Associated Physician Practices is amultiple site organization consisting of ambulatory clinics and hospital sitesin [place], [place], [place] and [place]. This disclosure is being madepursuant to the Care Everywhere program and may not contain all information available regarding this patient. Last updated 18.[facility] Social History Tobacco Use Types Packs/Day Years [...] to complete this topic MENINGOCOCCAL (Group B) VACC INE SHARED DECISION-MAKING Aged Out No longer eligibl e based on patient's age to complete this topic MENINGOCOCCAL GROUPS A/C/Y/W VACCINE Aged Out No longer eligible b ased on patient's age to complete this topic Care Teams Stonemason Relationship Specialty Start Date End Date Kade Nieves MD PCP - General 12/19/18
--- OUTSIDE RECORDS SUMMARY | 2025-02-01 09:08 | XMS_ITS | Encounter Summary ---
Author Organization [facility] Address [address] [facility] [place] [address] Care Team Providers Care Night Shift Supervisor Name Role Phone Kade Nieves MD Primary Care Provider [phone] Encounter Details Date Type Department Care Team (Late st Contact Info) Description 12/22/2018 Lab Requisition [facility] Care DermPath Lab [address] [facility] [facility] [place] [phone] Ermelinda Ashton MD [address] [facility] [address] [place] [address] Social History Tobacco Use Types Packs/Day Years [...] Comments DERMATOPATHOLOGY Routine 12/19/2018 12:0 0 AM HOME CARE PROVIDER documented in this encounter Results * DERMATOPATHOLOGY (12/19/2018 12:00 AM HOME CARE PROVIDER) Case Report Dermatopathology Report Case: [id number] Authorizing Provider: Ermelinda Ashton MD Collected: 12/19/2018 12:00 AM Pathologist: Janey Morgan MD Received: 12/22/2018 09:54 AM Specimen: Skin, left nasal tip 9 1:16 PM HOME CARE PROVIDER DERMATOPATHOLOGY LABORATORY Final Diagnosis Specimen A. SKIN, left nasal tip: ACTINIC KERATOSIS (L57.0) (see microscopic description) 9 1:16 PM HOME CARE PROVIDER DERMATOPATHOLOGY LABORATORY Clinical History BCC. Non-healing. 9 1:16 PM HOME CARE PROVIDER DERMATOPATHOLOGY LABORATORY Gross Description Specimen A: Received is one formalin filled container labeled with the patient's name and designated left nasal tip. The specimen consists of a shave biopsy measuring 8n2d0si. Jar 0. 1:16 PM [facility] DERMATOPATHOLOGY LABORATORY Microscopic Description Specimen A. SKIN, left nasal tip: There is focal parakeratosis. The lower half of the epidermis shows disorderly maturation of keratinocytes with nuclear pleomorphism. Additional deeper sections were obtained and reviewed. There is minimal dermis present for evaluation. 1:16 PM [facility] DERMATOPATHOLOGY LABORATORY Disclaimer An external and internal positive and negative controls are appropriate for the histochemical, immunohistochemical and immunofluorescence stain(s) in this case (if any), except where stated explicitly. The performance characteristics of the stain(s) cited in this report were developed and its performance characteristic determined by the Dermatopathology Laboratory at [facility], directed by Dr. Fortino Araiza. These tests need not be, and therefore are not, approved by the [place] Food and Drug Administration. The tests are used for clinical purposes. Billing Codes Specimen Charges Stain Charges 20273 1 1:16 PM [facility] DERMATOPATHOLOGY LABORATORY Embedded Images 1:16 PM [facility] DERMATOPATHOLOGY LABORATORY Pathology/Cytolog y TISSUE SPECIMEN FROM SKIN / Unknown 12/19/2018 12/22/2018 9:54 AM HOME CARE PROVIDER Ermelinda Ashton MD LAB - PATHOLOGY/CYT OLOGY ORDERABLES DERMATOPATHOLOGY LABORATORY [facility] - Department of Dermatology [address] [place] [address], 5th Floor Lab [address] [phone] documented in this encounter Visit Diagnoses Not on filedocumented in this encounter Care Teams Night Shift Supervisor Relationship Specialty Start Date End Date Kade Nieves MD PCP - General 12/19/18 documented as of this encounter
--- OUTSIDE RECORDS SUMMARY | 2025-02-01 09:08 | XMS_ITS | Clinical Summary ---
Author Organization [facility] Address [address] [place] [address] Care Team Providers Care Director Of Neighborhood Service Center Name Role Phone Jose Zana DARDEN Primary Care Provider [phone] Allergies No known active allergies Medications aspirin [...] soreness 06/13/2015 Palpitations 12/13/2014 Coronary arteriosclerosis in [place] artery 09/30 Hemospermia 03/17/2010 Encounters Date Type Department Care Team Description 12/21/2024 3:30 PM MINK SLICER Office Visit [facility] Cardiology [address] [place] [address] Michael Basurto MD Coronary arteriosclerosis in [place] artery (Primary Dx) from Last 3 Months [...] on file Legal Sex Male 2:59 AM MINK SLICER Gender Identity Not on file Sexual Orientation Not on file Occupation Industry Job Start Date Job End Date Retired Not on file Not on file Not on file Obstetrics History Last Filed Vital Signs Vital Sign Reading Time Taken Comments Blood Pressure 122/58 12/21/2024 2:46 PM MINK SLICER Pulse 68 12/21/2024 2:46 PM MINK SLICER Temperature 36.3 C (97.3 F) 09/16/2020 2:40 PM CDT Respiratory Rate 20 09/16/2020 2:55 PM CDT Oxygen Saturation 96% 12/21/2024 2:46 PM MINK SLICER Inhaled Oxygen Concentration - - Weight 84.3 kg (185 lb 14.4 oz) 12/21/2024 2:46 PM MINK SLICER Height 172.7 cm (5' 8 ) 12/21/2024 2:46 PM MINK SLICER Body Mass Index 28.27 12/21/2024 2:46 PM MINK SLICER Plan of Treatment Health Maintenance Due Date [...] 08/13/2008 , 03/24/2008, 02/10/2008 Insurance MEDICARE SOLUTIONS [place] [id number] MEDICARE SOLUTIONS MEDICARE SOL[place]IONS [place] [id number] Advance Directives For more information, please contact: [phone] * Full Code (Latest Code Status on File) Date Activated Date Inactivated Comments 09/16/2020 12:36 PM 09/16/2020 7:43 PM Care Teams Director Of Neighborhood Service Center Relationship Specialty Start Date End Date Zana Garcia DO PCP - General Family Medicine 06/26/22
--- OUTSIDE RECORDS SUMMARY | 2025-02-01 09:08 | XMS_ITS | Referral Summary ---
Author Organization [facility] Address [address] [place] [address] Care Team Providers Care Agricultural Equipment Test Engineer Name Role Phone Kade Nieves MD Primary Care Provider [phone] Source Comments [facility],non-owned Affiliates and Associated Physician Practices is amultiple site organization consisting of ambulatory clinics and hospital sitesin [place], [place], [place] and [place]. This disclosure is being madepursuant to the Care Everywhere program and may not contain all information available regarding this patient. Last updated 18.[facility] [employer] Social History Tobacco Use Types Packs/Day Years Used Date Smoking Tobacco: Never Assessed Sex and Gender Information Value Date Recorded Sex Assigned at Not on file Gender Identity Not on file Sexual Orientation Not on file Plan of Treatment Not on file Care Teams Agricultural Equipment Test Engineer Relationship Specialty Start Date End Date Kade Nieves MD PCP - General 12/19/18
[2025-02-01 15:21] LABS: Alanine Aminotransferase 32 U/L (6-50); Albumin Level 4.8 g/dL (3.5-5.1); Alkaline Phosphatase 56 U/L (38-126); Anion Gap 10 mmol/L (4-12); Aspartate Amino Transferase 38 U/L (17-59); Blood Urea Nitrogen 24 mg/dL (9-20); Calcium 9.6 mg/dL (8.4-10.2); Carbon Dioxide 28 mmol/L (22-30); Chloride 102 mmol/L (98-107); Cholesterol 133 mg/dL (0-200); Estimated Glomerular Filt Rate 59; Glucose 108 mg/dL (65-110); HDL Direct 37 mg/dL; Potassium 4.7 mmol/L (3.4-5.0); Sodium 140 mmol/L (137-145); Triglycerides 102 mg/dL (<150)
[2025-02-01 15:32] LABS: LDL Cholesterol Direct 63 mg/dL
[2025-02-01 15:48] LABS: Prostate Specific Antigen 0.4 ng/mL (< OR = 4.0)
== END 2025-02-01 08:43 | disposition home or self-care (01) ==
LOC: ANHGOSHLAB 08:43
PROVIDERS: PCP Internal Medicine; Visit Provider Internal Medicine
DX: Z12.5 Encounter for screening for malignant neoplasm of prostate (principal); Z13.228 Encounter for screening for other metabolic disorders; E11.9 Type 2 diabetes mellitus without complications; E78.5 Hyperlipidemia, unspecified
CPT/HCPCS: 36415; 80053; 80061; 83036; 84153; G0103

== ENCOUNTER 2025-02-04 07:48 | Day surgery (SDC) | payer MEDICARE, SELFPAY ==
[2025-01-25 09:41] VITALS: BMI 27.3
--- NOTE | 2025-02-04 06:57 | WPDANESEPPF ---
Anes - Initial Pre Proc Eval Procedure: Operation Date: 02/04/25 08:45 Proposed Procedures p Right Endoscopic Carpal Tunnel Release, Possible Open Carpal Tunnel Release - Kerry Esquivel MD s Trigger Finger Release Right Index and Ring Finger - Kerry Esquivel MD Date/Time: 02/04/25 06:57 Surgeon: Kerry Esquivel MD Pre Op Diagnosis: Right Carpal Tunnel Syndrome Patient Data Age: 84 Gender: M Height: 1.73 m Weight: 81.7 kg Allergies Allergy/AdvReac Type Severity Reaction Status Date / Time No Known Allergies Allergy Verified 02/04/25 07:57 Home Medications ?Medication ?Instructions ?Recorded ?Confirmed ?Type aspirin 81 mg tablet,delayed 81 mg PO DAILY #90 tabs 01/11/20 02/04/25 Rx release (Adult Low Dose Aspirin) finasteride 5 mg tablet 5 mg PO DAILY #90 tabs 02/07/23 02/04/25 Rx azelastine 137 mcg (0.1 %) nasal See Rx Instructions .Route 08/27/24 02/04/25 Rx spray .COMPLEX 90 days #90 mL amlodipine 10 mg tablet 10 mg PO DAILY #90 tabs 10/12/24 01/25/25 Rx metoprolol tartrate 25 mg tablet 25 mg PO BID #180 tabs 10/12/24 02/04/25 Rx pravastatin 40 mg tablet 40 mg PO DAILY #90 tabs 10/12/24 02/04/25 Rx ramipril 10 mg capsule 10 mg PO BID #180 caps 10/12/24 02/04/25 Rx tamsulosin 0.4 mg capsule 0.4 mg PO DAILY #90 caps 10/12/24 02/04/25 Rx multivitamin (Daily Value tablet) 1 tablet PO DAILY 01/25/25 02/04/25 History tramadol 50 mg tablet 50 mg PO Q6H PRN pain #12 tabs 02/04/25 Rx Patient hx anesthesia problems: none Family hx anesthesia problems: none Results Review: All pre-operative results and documents have been reviewed as part of the pre-operative evaluation. [facility] Past Medical History Medical History (Updated 02/04/25 @ 06:59 by Michael Corey DO) CAD (coronary artery disease) Hyperlipidemia Skin cancer GERD (gastroesophageal reflux disease) Hypertension Wears glasses Patellofemoral pain syndrome of right knee Right knee pain Surgical History Surgical History (Updated 02/04/25 @ 06:59 by Michael Corey DO) Coronary angioplasty status History of hand surgery Trigger finger x2 Family History Family History Sibling Diabetes mellitus, Onset Age: 64 Mother Patient's mother is , Onset Age: 79 Father Acute myocardial infarction, Onset Age: 85 Grandparent Family history of kidney disease, Onset Age: 60 Family history unknown, Onset Age: 85 Social History Social History Social History: caffeine- 3 cups coffee daily Smoking status: Never smoker Second hand tobacco smoke exposure: No Alcohol intake: former Substance use: never Substance use type: does not use Lack of Transportation: No Lack of Food: Never True Current Housing: I Have Housing Concerned About Future Housing: No Difficulty Paying Gas/Electric Bills: No Difficulty Paying for Meds: No Currently Unemployed: No Education: Master's Degree or Higher Difficulty w/ Childcare or Family Care: No Living arrangements: with family Occupation/Education: retired Gender identity (if verbalized by the patient): Male Anes - Eval Final PreProcedure Day of Procedure 02/04/25 06:57 Patient weight: overweight Heart: regular rate and rhythm Lungs: clear to auscultation Airway: Mallampati scale class II Neurological: alert and oriented Last oral intake: >/= 8 hours ASA classification: III Emergent: no Anesthetic plan: proceed Anesthesia type and monitoring: general GIVS and standard monitoring Results Review: All pre-operative results and documents have been reviewed as part of the pre-operative evaluation. Informed Consent: The patient's anesthetic plan and its attendant risks and benefits were discussed with the patient/family/POA. Questions were solicited and answers provided to the satisfaction of the patient/family/POA.
--- NOTE | 2025-02-04 07:06 | P.OP_ITS ---
Procedure Note - Detailed Date of Procedure 02/04/25 Pre-op Diagnosis Right Carpal Tunnel Syndrome adn right index and ring trigger finger Post-op Diagnosis Same Procedure Performed right ectr and right index and ring finger a1 nico release Surgeon Kerry Esquivel MD Lead Welder casa jerome pa-c Anesthesia MAC Description of Procedure INFORMED CONSENT: The patient was seen and examined and marked in the pre-op area.? The patient signed the consent form. PROCEDURE IN DETAIL:The patient taken back to OR on the stretcher in supine position. Time out performed with anesthesia, surgeon and staff agreeing on patient's name site and surgery to be performed SCDs were placed on the lower extremities and inflated. A tourniquet was placed on {right} upper extremity and antibiotics given IV After anesthesia administered sedation I injected {6}cc 1%lido with epi and 0.5% marcaine plain at the operative sites The?{right upper extremity}?was prepped and draped in sterile fashion the??{right upper extremity} was? exsanguinated with Esmarch bandage and tourniquet inflated to 250mmHg I made a transverse incision in the {right} volar distal wrist crease through skin and dermis with 15 blade scalpel.? Littler scissors spread down to antebrachial fascia. A small incision was made in antebrachial fascia allowing access to Carpal tunnel. I proceeded with sequential dilation staying in line with the ring finger and hugging the hook of the hamate.? I then used the synovial elevator to free any adhesions from the underside of the transverse carpal ligament. Next I was able to insert the Microaire endoscopic carpal tunnel device with direct visualization of the transverse fibers on the monitor and proceeded with complete segmental retrograde release of the ligament in its entirety.? I irrigated with normal saline and closed with 4-0 monocryl for dermis and subcuticular closure. Next I made a longitudinal incision over the right index finger A1 nico through skin and dermis with a 15 blade scalpel. Littler scissors were used to spread down to the A1 nico. The A1 nico was initially incised with a 15 blade scalpel. Littler scissors were used to spread above it and below it proximally and distally and completed the transection entirely. Ragnell retractor was used withdrawal the FDS and FDP tendons for inspection. The tendons were free of masses and synovitis and gliding smoothly in the sheath without crepitus or triggering. I irrigated with normal saline and closed with 4-0 chromic. Next I made a longitudinal incision over the right ring finger A1 nico through skin and dermis with a 15 blade scalpel. Littler scissors were used to spread down to the A1 nico. The A1 nico was initially incised with a 15 blade scalpel. Littler scissors were used to spread above it and below it proximally and distally and completed the transection entirely. Ragnell retractor was used withdrawal the FDS and FDP tendons for inspection. The tendons were free of masses and synovitis and gliding smoothly in the sheath without crepitus or triggering. I irrigated with normal saline and closed with 4-0 chromic. A dressing of Dermabond for the wrist and xeroform for palm, 4x4, yanet, and a volar splint was applied for patient safety, security, and comfort and secured with an [place] bandage after the tourniquet was let down noting the hand was warm and well perfused. The patient was then awaken from anesthesia and transferred to the recovery room in stable condition.? Complications - none EBL- 0cc Disposition - home in stable conditions Casa HOOD was essential for positioning, retraction, closure and dressing placement [facility] Billing Surgery - Charge Forward: Surgery Billing ([id number] same for casa adding modifier )
--- NOTE | 2025-02-04 07:06 | WPDHPUPDATE1 ---
History and Physical Update Update Date/Time: 02/04/25 07:06 Patient seen and examined in pre-operative holding area. No interval change in medical history or symptoms. Patient recalls previous discussion of benefits and alternatives to procedure. Continues to desire to proceed with right endoscopic possible open carpal tunnel release and right index and ring finger a1 nico release . Reviewed procedure, post-op expectations and risks including but not limited to bleeding, infection, injury to tendon/nerve/vessel, decreased hand function, stiffness, RSD, no change or worsening of symptoms. I discussed the possible use of assistants and their participation in the case. Patient stated understanding and signed the consent form wishing to proceed.
--- OUTSIDE RECORDS SUMMARY | 2025-02-04 07:52 | XMS_ITS | Encounter Summary ---
Author Organization [facility] Address [address] [place] [address] Care Team Providers Care Fuel Manager Name Role Phone Kade Nieves MD Primary Care Provider [phone] Encounter Details Date Type Department Care Team (Late st Contact Info) Description 07/16/2023 Lab Requisition [facility] - DermPath Lab [address] [place] [address] Louisa Castro DO [address] [place] [address] Social History Tobacco Use Types Packs/Day Years [...] AM CDT) Case Report Dermatopathology Report Case: [id number] Authorizing Provider: Louisa Castro DO Collected: 07/16/2023 10:38 AM Ordering Location: [facility] DermPath Lab Received: 07/17/2023 07:48 AM [...] 4x2x1 mm. Jar 0. 3 4:[address] [facility] DERMATOPATHOLOGY LABORATORY Microscopic Description Specimen [...] or a seborrheic keratosis. 3 4:[address] [facility] DERMATOPATHOLOGY LABORATORY Disclaimer An external and internal positive and negative controls are appropriate for the histochemical, immunohistochemical and immunofluorescence stain(s) in this case (if any), except where stated explicitly. The performance characteristics of the stain(s) cited in this report were developed and its performance characteristic determined by the Dermatopathology Laboratory at [facility], directed by Dr. Fortino Araiza. These tests need not be, and therefore are not, approved by the [place] Food and Drug Administration. The tests are used for clinical purposes. Billing Codes Specimen Charges Stain Charges 23247 1 3 4:18 PM CDT DERMATOPATHOLOGY LABORATORY Embedded Images 3 4:18 PM CDT DERMATOPATHOLOGY LABORATORY Pathology/Cytolo gy TISSUE SPECIMEN FROM SKIN / Unknown 07/16/2023 10:38 AM CDT 07/17/2023 7:48 AM CDT Louisa Castro DO LAB - PATHOLOGY/C YTOLOGY ORDERABLES DERMATOPATHOLOGY LABORATORY [facility] - Department of Dermatology [address], [address] [phone] documented in this encounter Visit Diagnoses Not on filedocumented in this encounter Care Teams Fuel Manager Relationship Specialty Start Date End Date Kade Nieves MD PCP - General 12/19/18 documented as of this encounter
--- OUTSIDE RECORDS SUMMARY | 2025-02-04 07:52 | XMS_ITS | Clinical Summary ---
Author Organization [facility] Address [address] [place] [address] Care Team Providers Care Geophysical Support Specialist Name Role Phone Jose Zana DARDEN Primary Care Provider Allergies No known active allergies Medications aspirin [...] soreness 06/13/2015 Palpitations 12/13/2014 Coronary arteriosclerosis in [place] artery 09/30 Hemospermia 03/17/2010 Encounters Date Type Department Care Team Description 12/21/2024 3:30 PM COMPUTER ART INSTRUCTOR Office Visit [facility] Cardiology [address] [place] [address] Michael Basurto MD Coronary arteriosclerosis in [place] artery (Primary Dx) from Last 3 Months [...] on file Legal Sex Male 2:59 AM COMPUTER ART INSTRUCTOR Gender Identity Not on file Sexual Orientation Not on file Occupation Industry Job Start Date Job End Date Retired Not on file Not on file Not on file Obstetrics History Last Filed Vital Signs Vital Sign Reading Time Taken Comments Blood Pressure 122/58 12/21/2024 2:46 PM COMPUTER ART INSTRUCTOR Pulse 68 12/21/2024 2:46 PM COMPUTER ART INSTRUCTOR Temperature 36.3 C (97.3 F) 09/16/2020 2:40 PM CDT Respiratory Rate 20 09/16/2020 2:55 PM CDT Oxygen Saturation 96% 12/21/2024 2:46 PM COMPUTER ART INSTRUCTOR Inhaled Oxygen Concentration - - Weight 84.3 kg (185 lb 14.4 oz) 12/21/2024 2:46 PM COMPUTER ART INSTRUCTOR Height 172.7 cm (5' 8 ) 12/21/2024 2:46 PM COMPUTER ART INSTRUCTOR Body Mass Index 28.27 12/21/2024 2:46 PM COMPUTER ART INSTRUCTOR Plan of Treatment Health Maintenance Due Date [...] 08/13/2008 , 03/24/2008, 02/10/2008 Insurance MEDICARE SOLUTIONS [place] [id number] MEDICARE SOLUTIONS MEDICARE SOLUTIONS [place] [id number] Advance Directives For more information, please contact: [phone] * Full Code (Latest Code Status on File) Date Activated Date Inactivated Comments 09/16/2020 12:36 PM 09/16/2020 7:43 PM Care Teams Geophysical Support Specialist Relationship Specialty Start Date End Date Zana Garcia DO PCP - General Family Medicine 06/26/22
--- OUTSIDE RECORDS SUMMARY | 2025-02-04 07:52 | XMS_ITS | Clinical Summary ---
Author Organization [facility] Address [address] [place] [address] Care Team Providers Care Manager Of Data Name Role Phone Kade Nieves MD Primary Care Provider [phone] Source Comments [facility],non-owned Affiliates and Associated Physician Practices is amultiple site organization consisting of ambulatory clinics and hospital sitesin [place], [place], [place] and [place]. This disclosure is being madepursuant to the Care Everywhere program and may not contain all information available regarding this patient. Last updated 18.[facility] Social History Tobacco Use Types Packs/Day Years [...] age to complete this topic Care Teams Manager Of Data Relationship Specialty Start Date End Date Kade Nieves MD PCP - General 12/19/18
--- OUTSIDE RECORDS SUMMARY | 2025-02-04 07:52 | XMS_ITS | Encounter Summary ---
Author Organization [facility] Address [address] [place] [address] Care Team Providers Care Carton Forming Machine Operator Name Role Phone Kade Nieves MD Primary Care Provider [phone] Encounter Details Date Type Department Care Team (Late st Contact Info) Description 12/22/2018 Lab Requisition [facility] DermPath Lab [address] [place] [phone] Ermelinda Ashton MD [address] [place] [address] Social History Tobacco Use Types Packs/Day Years [...] Comments DERMATOPATHOLOGY Routine 12/19/2018 12:0 0 AM SEMICONDUCTOR WAFERS ETCHER STRIPPER documented in this encounter Results * DERMATOPATHOLOGY (12/19/2018 12:00 AM SEMICONDUCTOR WAFERS ETCHER STRIPPER) Case Report Dermatopathology Report Case: [id number] Authorizing Provider: Ermelinda Ashton MD Collected: 12/19/2018 12:00 AM Pathologist: Janey Morgan MD Received: 12/22/2018 09:54 AM Specimen: Skin, left nasal tip 9 1:16 PM SEMICONDUCTOR WAFERS ETCHER STRIPPER DERMATOPATHOLOGY LABORATORY Final Diagnosis Specimen A. SKIN, left nasal tip: ACTINIC KERATOSIS (L57.0) (see microscopic description) 9 1:16 PM SEMICONDUCTOR WAFERS ETCHER STRIPPER DERMATOPATHOLOGY LABORATORY Clinical History BCC. Non-healing. 9 1:16 PM SEMICONDUCTOR WAFERS ETCHER STRIPPER DERMATOPATHOLOGY LABORATORY Gross Description Specimen A: Received is one formalin filled container labeled with the patient's name and designated left nasal tip. The specimen consists of a shave biopsy measuring [id number]. Jar 0. 1:16 PM [facility] DERMATOPATHOLOGY LABORATORY Microscopic Description Specimen A. SKIN, left nasal tip: There is focal parakeratosis. The lower half of the epidermis shows disorderly maturation of keratinocytes with nuclear pleomorphism. Additional deeper sections were obtained and reviewed. There is minimal dermis present for evaluation. 1:16 PM [facility] DERMATOPATHOLOGY LABORATORY Disclaimer An external and internal positive and negative controls are appropriate for the histochemical, immunohistochemical and immunofluorescence stain(s) in this case (if any), except where stated explicitly. The performance characteristics of the stain(s) cited in this report were developed and its performance characteristic determined by the Dermatopathology Laboratory at [facility], directed by Dr. Fortino Araiza. These tests need not be, and therefore are not, approved by the [place] Food and Drug Administration. The tests are used for clinical purposes. Billing Codes Specimen Charges Stain Charges 28744 1 1:16 PM [facility] DERMATOPATHOLOGY LABORATORY Embedded Images 1:16 PM [facility] DERMATOPATHOLOGY LABORATORY Pathology/Cytolog y TISSUE SPECIMEN FROM SKIN / Unknown 12/19/2018 12/22/2018 9:54 AM SEMICONDUCTOR WAFERS ETCHER STRIPPER Ermelinda Ashton MD LAB - PATHOLOGY/CYT OLOGY ORDERABLES DERMATOPATHOLOGY LABORATORY [facility] - Department of Dermatology [address] [place] [address], [address] Lab [address] [phone] documented in this encounter Visit Diagnoses Not on filedocumented in this encounter Care Teams Carton Forming Machine Operator Relationship Specialty Start Date End Date Kade Nieves MD PCP - General 12/19/18 documented as of this encounter
--- OUTSIDE RECORDS SUMMARY | 2025-02-04 07:52 | XMS_ITS | Referral Summary ---
Author Organization [facility] Address [address] [place] [address] Care Team Providers Care Inspector Tool Name Role Phone Jose AZana harrison Primary Care Provider [phone] Encounters Date Type Department Care Team Description 12/21/2024 3:30 PM HIDE DROPPER Office Visit [facility] Cardiology [address] [place] [address] Michael Basurto MD Coronary arteriosclerosis in [place] artery (Primary Dx) from Last 3 Months [...] soreness 06/13/2015 Palpitations 12/13/2014 Coronary arteriosclerosis in [place] artery 09/30 Hemospermia 03/17/2010 Immunizations Immunization Administration [...] on file Legal Sex Male 2:59 AM HIDE DROPPER Gender Identity Not on file Sexual Orientation Not on file Occupation Industry Job Start Date Job End Date Retired Not on file Not on file Not on file Last Filed Vital Signs Vital Sign Reading Time Taken Comments Blood Pressure 122/58 12/21/2024 2:46 PM HIDE DROPPER Pulse 68 12/21/2024 2:46 PM HIDE DROPPER Temperature 36.3 C (97.3 F) 09/16/2020 2:40 PM CDT Respiratory Rate 20 09/16/2020 2:55 PM CDT Oxygen Saturation 96% 12/21/2024 2:46 PM HIDE DROPPER Inhaled Oxygen Concentration - - Weight 84.3 kg (185 lb 14.4 oz) 12/21/2024 2:46 PM HIDE DROPPER Height 172.7 cm (5' 8 ) 12/21/2024 2:46 PM HIDE DROPPER Body Mass Index 28.27 12/21/2024 2:46 PM HIDE DROPPER Plan of Treatment Not on file Insurance MEDICARE SOLUTIONS MEDICARE SOL[employer] [address] Advance Directives For more information, please contact: [phone] * Full Code (Latest Code Status on File) Date Activated Date Inactivated Comments 09/16/2020 12:36 PM 09/16/2020 7:43 PM Care Teams Inspector Tool Relationship Specialty Start Date End Date Zana Garcia DO PCP - General Family Medicine 06/26/22
--- OUTSIDE RECORDS SUMMARY | 2025-02-04 07:52 | XMS_ITS | Clinical Summary ---
Author Organization [facility] Address [address] [place] [address] Care Team Providers Care Obedience Trainer Name Role Phone Unavailable Primary Care Provider Unavailabl e Immunizations Immunization Administration Dates Next Due Covid-19, Mrna, Lnp-s, PF, 5 0 mcg/0.25 mL dose (Moderna) 10/20/2021 Social History Tobacco Use Types Packs/Day Years Used Date Smoking Tobacco: Never Assessed Sex and Gender Information Value Date Recorded Sex Assigned at Not on file Legal Sex Male 12:13 PM MANAGER CONFIGURATION Gender Identity Not on file Sexual Orientation [...]
[2025-02-04 08:08] VITALS: BP 127/72; PULSE 58; RESP 16; TEMP 36.8; O2SAT 97; BMI 27.5
[2025-02-04] MEDS: LACTATED RINGERS 1,000 ML 30 ML IV CONT (08:46)
[2025-02-04] MEDS: ceFAZolin SODIUM 2 GM/20 ML SW SYRINGE IV PUSH (08:46)
[2025-02-04] MEDS: LIDO 1%/EPINEPHRINE 1:100,000 10 ML VIAL 3 ML INFILTRATE (08:49)
[2025-02-04] MEDS: BUPivacaine HCL 0.5% 10 ML AMP 3 ML INFILTRATE (08:49)
[2025-02-04] MEDS: BACITRACIN ZINC OINTMENT 0.9 GRAM PACKET 1 PACKET TOPICAL (09:07)
[2025-02-04 09:10] VITALS: BP 96/54; PULSE 60; RESP 16; O2SAT 97
[2025-02-04 09:20] VITALS: BP 103/57; PULSE 64; RESP 16; O2SAT 94
[2025-02-04 09:30] VITALS: BP 110/71; PULSE 57; RESP 16; O2SAT 94
[2025-02-04 09:40] VITALS: BP 123/66; PULSE 56; RESP 15; O2SAT 94
--- NOTE | 2025-02-04 09:47 | WPDANESPN ---
Anes - Prog Note Post-Op Date/Time: 02/04/25 09:47 Cardiovascular status: normal Respiratory status: normal Airway patency: baseline Mental status: baseline Post-Op hydration status: normal Vital Signs: Last Vital Signs Temp 36.8 C 02/04/25 08:08 Pulse 57 L 02/04/25 09:30 Resp 16 02/04/25 09:30 BP 110/71 02/04/25 09:30 Pulse Ox 94 02/04/25 09:30 O2 Del Method Room Air 02/04/25 09:30 Pain Score (VAS): 0 I/O: Intake & Output 02/03/25 02/04/25 02/04/25 23:59 07:59 15:59 Intake Total 500 Balance 500 Post-procedural complaints: none Patient Feedback: Patient satisfied with anesthetic care. Other Findings: Patient vital signs back to baseline. Patient denies nausea and vomiting. Patient's pain under control. Patient OK for discharge.
== END 2025-02-04 10:00 | disposition home or self-care (01) ==
PROVIDERS: PCP Internal Medicine; Visit Provider Plastic Surgery
PROC: 01N54ZZ Release Median Nerve, Percutaneous Endoscopic Approach (ICD-10-PCS; CPT 29848; principal; 2025-02-04 08:45)
PROC: (CPT 26055; 2025-02-04 08:45)
DX: G56.01 Carpal tunnel syndrome, right upper limb (principal); M65.321 Trigger finger, right index finger; M65.341 Trigger finger, right ring finger
CPT/HCPCS: 29848; 26055 ×2

== ENCOUNTER 2025-02-12 15:47 | Outpatient (CLI) | payer MEDICARE, SELFPAY ==
--- OUTSIDE RECORDS SUMMARY | 2025-02-12 15:50 | XMS_ITS | Encounter Summary ---
Author Organization [facility] Address [address] [facility] [place] [address] Care Team Providers Care Sat Math Tutor Name Role Phone Kade Nieves MD Primary Care Provider [phone] Encounter Details Date Type Department Care Team (Late st Contact Info) Description 07/16/2023 Lab Requisition [facility] - DermPath Lab [address], [place] [address] Louisa Castro DO [address] [facility] 3 [place] [address] Social History Tobacco Use Types Packs/Day Years [...] AM CDT) Case Report Dermatopathology Report Case: [id number] Authorizing Provider: Louisa Castro DO Collected: 07/16/2023 10:38 AM Ordering Location: [facility] DermPath Lab Received: 07/17/2023 07:48 AM Pathologist: [...] 4x2x1 mm. Jar 0. 3 4:18 PM [facility] DERMATOPATHOLOGY LABORATORY Microscopic Description Specimen [...] or a seborrheic keratosis. 3 4:18 PM [facility] DERMATOPATHOLOGY LABORATORY Disclaimer An external and internal positive and negative controls are appropriate for the histochemical, immunohistochemical and immunofluorescence stain(s) in this case (if any), except where stated explicitly. The performance characteristics of the stain(s) cited in this report were developed and its performance characteristic determined by the Dermatopathology Laboratory at [facility], directed by Dr. Fortino Araiza. These tests need not be, and therefore are not, approved by the [place] Food and Drug Administration. The tests are used for clinical purposes. Billing Codes Specimen Charges Stain Charges 16981 1 3 4:18 PM CDT DERMATOPATHOLOGY LABORATORY Embedded Images 3 4:18 PM CDT DERMATOPATHOLOGY LABORATORY Pathology/Cytolo gy TISSUE SPECIMEN FROM SKIN / Unknown 07/16/2023 10:38 AM CDT 07/17/2023 7:48 AM CDT Louisa Castro DO LAB - PATHOLOGY/C YTOLOGY ORDERABLES DERMATOPATHOLOGY LABORATORY [facility] - Department of Dermatology [address], [address] [phone] documented in this encounter Visit Diagnoses Not on filedocumented in this encounter Care Teams Sat Math Tutor Relationship Specialty Start Date End Date Kade Nieves MD PCP - General 12/19/18 documented as of this encounter
--- OUTSIDE RECORDS SUMMARY | 2025-02-12 15:50 | XMS_ITS | Referral Summary ---
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) from Last 3 Months [...] soreness 06/13/2015 Palpitations 12/13/2014 Coronary arteriosclerosis in [place] artery 09/30 Hemospermia 03/17/2010 Immunizations Immunization Administration [...] on file Legal Sex Male 2:59 AM QUALITY ASSURANCE ENGINEER Gender Identity Not on file Sexual Orientation Not on file Occupation Industry Job Start Date Job End Date Retired Not on file Not on file Not on file Last Filed Vital Signs Vital Sign Reading Time Taken Comments Blood Pressure 122/58 12/21/2024 2:46 PM QUALITY ASSURANCE ENGINEER Pulse 68 12/21/2024 2:46 PM QUALITY ASSURANCE ENGINEER Temperature 36.3 C (97.3 F) 09/16/2020 2:40 PM CDT Respiratory Rate 20 09/16/2020 2:55 PM CDT Oxygen Saturation 96% 12/21/2024 2: 46 PM QUALITY ASSURANCE ENGINEER Inhaled Oxygen Concentration - - Weight 84.3 kg (185 lb 14.4 oz) 12/21/2024 2:46 PM QUALITY ASSURANCE ENGINEER Height 172.7 cm (5' 8 ) 12/21/2024 2:46 PM QUALITY ASSURANCE ENGINEER Body Mass Index 28.27 12/21/2024 2:46 PM QUALITY ASSURANCE ENGINEER Plan of Treatment Not on file Insurance [facility] MEDICARE ADVANTAGE UHC MEDICARE ADVANTAGE [facility] MEDICARE ADVANTAGE Advance Directives For more information, please contact: [phone] * Full Code (Latest Code Status on File) Date Activated Date Inactivated Comments 09/16/2020 12:36 PM 09/16/2020 7:43 PM Care Teams Vegetable I Farmworker Relationship Specialty Start Date End Date Zana Garcia DO PCP - General Family Medicine 06/26/22
--- OUTSIDE RECORDS SUMMARY | 2025-02-12 15:51 | XMS_ITS | Clinical Summary ---
Author Organization [facility] Address [address] [place] [address] Care Team Providers Care Double End Sewer Name Role Phone Jose Zana DARDEN Primary Care Provider [phone] Allergies No known active allergies Medications aspirin [...] soreness 06/13/2015 Palpitations 12/13/2014 Coronary arteriosclerosis in [place] artery 09/30 Hemospermia 03/17/2010 Encounters Date Type Department Care Team Description 12/21/2024 3:30 PM H[employer] Office Visit [facility] Cardiology [address] [place] [address] Michael Basurto MD 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) from Last 3 Months [...] on file Legal Sex Male 2:59 AM [employer] Gender Identity Not on file Sexual Orientation Not on file Occupation Industry Job Start Date Job End Date Retired Not on file Not on file Not on file Obstetrics History Last Filed Vital Signs Vital Sign Reading Time Taken Comments Blood Pressure 122/58 12/21/2024 2:46 PM [employer] Pulse 68 12/21/2024 2:46 PM [employer] Temperature 36.3 C (97.3 F) 09/16/2020 2:40 PM CDT Respiratory Rate 20 09/16/2020 2:55 PM CDT Oxygen Saturation 96% 12/21/2024 2:46 PM [employer] Inhaled Oxygen Concentration - - Weight 84.3 kg (185 lb 14.4 oz) 12/21/2024 2:46 PM [employer] Height 172.7 cm (5' 8 ) 12/21/2024 2:46 PM [employer] Body Mass Index 28.27 12/21/2024 2:46 PM [employer] Plan of Treatment Health Maintenance Due Date [...] Screening Completed 08/13/2008 , 03/24/2008, 02/10/2008 Insurance [employer] MEDICARE ADVANTAGE [place] [id number] UHC MEDICARE ADVANTAGE [place] [id number] Advance Directives For more information, please contact: [phone] * Full Code (Latest Code Status on File) Date Activated Date Inactivated Comments 09/16/2020 12:36 PM 09/16/2020 7:43 PM Care Teams Double End Sewer Relationship Specialty Start Date End Date Zana Garcia DO PCP - General Family Medicine 06/26/22
--- OUTSIDE RECORDS SUMMARY | 2025-02-12 15:51 | XMS_ITS | Clinical Summary ---
Author Organization [facility] Address [address] [place] [address] Care Team Providers Care Control Clerk Head Name Role Phone Kade Nieves MD Primary Care Provider [phone] Source Comments [facility],non-owned Affiliates and Associated Physician Practices is amultiple site organization consisting of ambulatory clinics and hospital sitesin [place], [place], [place] and [place]. This disclosure is being madepursuant to the Care Everywhere program and may not contain all information available regarding this patient. Last updated 18.[facility] Social History Tobacco Use Types Packs/Day Years [...] age to complete this topic Care Teams Control Clerk Head Relationship Specialty Start Date End Date Kade Nieves MD PCP - General 12/19/18
--- OUTSIDE RECORDS SUMMARY | 2025-02-12 15:51 | XMS_ITS | Clinical Summary ---
Author Organization [facility] Address [address] [place] [address] Care Team Providers Care Protective Signal Repairer Name Role Phone Unavailable Primary Care Provider Unavailabl e Immunizations Immunization Administration Dates Next Due Covid-19, Mrna, Lnp-s, PF, 5 0 mcg/0.25 mL dose (Moderna) 10/20/2021 Social History Tobacco Use Types Packs/Day Years Used Date Smoking Tobacco: Never Assessed Sex and Gender Information Value Date Recorded Sex Assigned at Not on file Legal Sex Male 12:13 PM RN ICU Gender Identity Not on file Sexual Orientation [...]
--- OUTSIDE RECORDS SUMMARY | 2025-02-12 15:51 | XMS_ITS | Encounter Summary ---
Author Organization [facility] Address [address] [place] [address] Care Team Providers Care Wound Care Physician Name Role Phone Kade Nieves MD Primary Care Provider [phone] Encounter Details Date Type Department Care Team (Late st Contact Info) Description 12/22/2018 Lab Requisition [facility] Care DermPath Lab [address] [facility] [place] [address] Ermelinda Ashton MD [address] [facility] [address] DE[place] [address] Social History Tobacco Use Types Packs/Day Years [...] Comments DERMATOPATHOLOGY Routine 12/19/2018 12:0 0 AM SENIOR BUSINESS ARCHITECT documented in this encounter Results * DERMATOPATHOLOGY (12/19/2018 12:00 AM SENIOR BUSINESS ARCHITECT) Case Report Dermatopathology Report Case: [id number] Authorizing Provider: Ermelinda Ashton MD Collected: 12/19/2018 12:00 AM Pathologist: Janey Morgan MD Received: 12/22/2018 09:54 AM Specimen: Skin, left nasal tip 9 1:16 PM SENIOR BUSINESS ARCHITECT DERMATOPATHOLOGY LABORATORY Final Diagnosis Specimen A. SKIN, left nasal tip: ACTINIC KERATOSIS (L57.0) (see microscopic description) 9 1:16 PM SENIOR BUSINESS ARCHITECT DERMATOPATHOLOGY LABORATORY Clinical History BCC. Non-healing. 9 1:16 PM SENIOR BUSINESS ARCHITECT DERMATOPATHOLOGY LABORATORY Gross Description Specimen A: Received is one formalin filled container labeled with the patient's name and designated left nasal tip. The specimen consists of a shave biopsy measuring 8g2m3bf. Jar 0. 1:16 PM [facility] DERMATOPATHOLOGY LABORATORY Microscopic Description Specimen A. SKIN, left nasal tip: There is focal parakeratosis. The lower half of the epidermis shows disorderly maturation of keratinocytes with nuclear pleomorphism. Additional deeper sections were obtained and reviewed. There is minimal dermis present for evaluation. 1:16 PM [facility] DERMATOPATHOLOGY LABORATORY Disclaimer An external and internal positive and negative controls are appropriate for the histochemical, immunohistochemical and immunofluorescence stain(s) in this case (if any), except where stated explicitly. The performance characteristics of the stain(s) cited in this report were developed and its performance characteristic determined by the Dermatopathology Laboratory at [facility], directed by Dr. Fortino Araiza. These tests need not be, and therefore are not, approved by the [place] Food and Drug Administration. The tests are used for clinical purposes. Billing Codes Specimen Charges Stain Charges 81689 1 1:16 PM [facility] DERMATOPATHOLOGY LABORATORY Embedded Images 1:16 PM [facility] DERMATOPATHOLOGY LABORATORY Pathology/Cytolog y TISSUE SPECIMEN FROM SKIN / Unknown 12/19/2018 12/22/2018 9:54 AM SENIOR BUSINESS ARCHITECT Ermelinda Ashton MD LAB - PATHOLOGY/CYT OLOGY ORDERABLES DERMATOPATHOLOGY LABORATORY [facility] - Department of Dermatology [address] [place] [address], 5th Floor Lab [address] [phone] documented in this encounter Visit Diagnoses Not on filedocumented in this encounter Care Teams Wound Care Physician Relationship Specialty Start Date End Date Kade Nieves MD PCP - General 12/19/18 documented as of this encounter
[2025-02-15 15:19] LABS: Protein, Total 7.7 g/dL (6.1-8.1)
[2025-02-16 21:29] LABS: Albumin 4.3 g/dL (3.8-4.8); Alpha 1 Globulin 0.3 g/dL (0.2-0.3); Alpha 2 Globulin 0.9 g/dL (0.5-0.9); Beta 1 Globulin 0.5 g/dL (0.4-0.6); Gamma Globulin 1.3 g/dL (0.8-1.7)
== END 2025-02-12 15:48 | disposition home or self-care (01) ==
LOC: ANHLAB 15:48
PROVIDERS: PCP Internal Medicine; Visit Provider Internal Medicine
DX: R77.9 Abnormality of plasma protein, unspecified (principal)
CPT/HCPCS: 36415; 84155; 84165